=== PATIENT | male | born 1955 | race Caucasian/White ===

== ENCOUNTER 2018-04-09 15:01 | Outpatient (CLI) | payer OTHER ==
[~2018-04-09 15:01] MED LIST: ALBU8.5H5 INH; ASPI-515 PO; IRBE1TAB37 PO; METO50TA4 PO; MONT10TA9 PO; SIMV40TA3 PO
[2018-04-09 15:36] LABS: BASOPHILS # (AUTO) 0.04 x10^3/uL (0-0.1); BASOPHILS % (AUTO) 0 % (0-1); EOSINOPHILS # (AUTO) 0.49 x10^3/uL (0-0.4); EOSINOPHILS % (AUTO) 6 % (1-7); LYMPHOCYTES # (AUTO) 1.88 x10^3/uL (1-3.4); LYMPHOCYTES % (AUTO) 22 % (22-44); MD NO; MEAN CORPUSCULAR HEMOGLOBIN 32.5 pg (27.5-34.5); MEAN CORPUSCULAR HGB CONC 33.7 g/dL (33.2-36.2); MEAN CORPUSCULAR VOLUME 96.3 fL (81-97); MEAN PLATELET VOLUME 8.7 fL (7.4-10.4); MONOCYTES # (AUTO) 0.67 x10^3/uL (0.2-0.8); MONOCYTES % (AUTO) 8 % (2-9); NEUTROPHILS # (AUTO) 5.58 x10^3/uL (1.8-6.8); NEUTROPHILS % (AUTO) 65 % (42-75); PLATELET COUNT 211 x10^3/uL (130-400); RED BLOOD COUNT 4.71 x10^6/uL (4.38-5.82); RED CELL DISTRIBUTION WIDTH 13.1 % (9.4-14.8)
[2018-04-09] MEDS ORDERED: SIMV40TA3 PO (15:38)
[2018-04-09] MEDS ORDERED: ZOLP10TA PO (15:38)
[2018-04-09] MEDS ORDERED: IRBE1TAB61 PO (15:38)
[2018-04-09] MEDS ORDERED: ASPI-496 PO (15:39)
[2018-04-09] MEDS ORDERED: METO-93 PO (15:40)
[2018-04-09] MEDS ORDERED: NIAC500T9 PO (15:41)
[2018-04-09] MEDS ORDERED: ESCI5TAB PO (15:42)
[2018-04-09] MEDS ORDERED: FISH OIL PO (15:43)
[2018-04-09 15:49] LABS: ALANINE AMINOTRANSFERASE 37 U/L (12-78); ALBUMIN 3.6 g/dL (3.4-5.0); ANION GAP 9 mmol/L (5-15); CALCIUM 8.8 mg/dL (8.5-10.1); CHLORIDE 107 mmol/L (98-107); CREATININE 0.91 mg/dL (0.7-1.3)
[2018-04-09 15:51] LABS: ALKALINE PHOSPHATASE 97 U/L (45-117); BILIRUBIN,TOTAL 0.7 mg/dL (0.2-1.0); TOTAL PROTEIN 7.5 g/dL (6.4-8.2)
== END 2018-04-09 23:59 | disposition home or self-care (01) ==
LOC: STAR 15:01
PROVIDERS: ATTEND Internal Medicine Cardiovascular Disease
DX: Z01.818 Encounter for other preprocedural examination (principal); I25.10 Atherosclerotic heart disease of native coronary artery without angina pectoris; R07.89 Other chest pain
CPT/HCPCS: 36415; 80053; 85025

== ENCOUNTER 2018-04-15 10:10 | Inpatient (IN) | payer OTHER ==
[~2018-04-15] VITALS: Ht 188 cm; Wt 101.9 kg
[~2018-04-15 10:10] MED LIST changes: +ASPI-496 PO; +ESCI5TAB PO; +FISH OIL PO; +IRBE1TAB61 PO; +METO-93 PO; +NIAC500T9 PO; +ZOLP10TA PO
[2018-04-15 10:55] VITALS: BP 137/99
[2018-04-15] MEDS ORDERED: SODIUM CHLORIDE 0.9% 1,000 ML IV ONE (11:00)
[2018-04-15] MEDS ORDERED: BIVALIRUDIN 250 MG ONE (11:30)
[2018-04-15] MEDS ORDERED: MIDAZOLAM 1 MG/ML, 5ML ONE (11:30)
[2018-04-15] MEDS ORDERED: HEPARIN 1,000 UNITS/ML, 10ML ONE (11:30)
[2018-04-15] MEDS ORDERED: FENTANYL PF 100 MCG/2ML ONE (11:30)
[2018-04-15] MEDS ORDERED: LIDOCAINE 2%, 20ML ONE (11:31)
[2018-04-15] MEDS ORDERED: NITROGLYCERIN 5 MG/ML, 10ML ONE (12:20)
[2018-04-15] MEDS ORDERED: PRASUGREL 10 MG TABLET ONE (12:29)
[2018-04-15] MEDS ORDERED: BIVALIRUDIN 250 MG in SODIUM CHLORIDE 0.9% 50 ML IV SCH (12:39)
[2018-04-15] MEDS ORDERED: SODIUM CHLORIDE 0.9% 1,000 ML IV SCH (12:39)
[2018-04-15] MEDS ORDERED: ZOLPIDEM 10MG TABLET PO PRN (13:00)
[2018-04-15] MEDS ORDERED: ACETAMINOPHEN 325 MG TABLET PO PRN (13:00)
[2018-04-15 14:48] VITALS: BP 164/84
[2018-04-15] MEDS ORDERED: ALBU6.7H INH (16:29)
[2018-04-15] MEDS ORDERED: ALBUTEROL SULFATE 2.5 MG/3 ML ONE (16:53)
[2018-04-15] MEDS: ALBUTEROL SULFATE 2.5 MG/3 ML NPPB PRN (17:00)
[2018-04-15] MEDS ORDERED: DIPHENHYDRAMINE 25 MG CAPSULE PO ONE (18:00)
[2018-04-15 19:25] VITALS: BP 161/84
[2018-04-15] MEDS ORDERED: CITALOPRAM 10 MG TABLET PO SCH (21:00)
[2018-04-15] MEDS ORDERED: SIMVASTATIN 40 MG TABLET PO SCH (21:00)
[2018-04-16 02:36] VITALS: BP 130/61
[2018-04-16 05:04] LABS: ANION GAP 7 mmol/L (5-15); CALCIUM 8.5 mg/dL (8.5-10.1); CHLORIDE 107 mmol/L (98-107)
[2018-04-16 07:13] VITALS: BP 98/60
[2018-04-16] MEDS ORDERED: ASPIRIN 81 MG TABLET EC PO SCH (09:00)
[2018-04-16] MEDS ORDERED: METOPROLOL SUCCINATE 50 MG TAB.ER.24H PO SCH (09:00)
[2018-04-16] MEDS ORDERED: HYDROCHLOROTHIAZIDE 12.5 MG CAPSULE PO SCH (09:00)
[2018-04-16] MEDS ORDERED: OMEGA-3/FISH OIL CAPSULE PO SCH (09:00)
[2018-04-16] MEDS ORDERED: PRASUGREL 10 MG TABLET PO SCH (09:00)
[2018-04-16] MEDS ORDERED: NIACIN 500 MG TABLET.ER PO SCH (09:00)
[2018-04-16] MEDS ORDERED: TEMPLATE NON-FORMULARY MED. (Aspirin** (Aspir 81**) 81 MG) PO SCH (09:00)
[2018-04-16] MEDS ORDERED: IRBESARTAN 150 MG TABLET PO SCH (09:00)
[2018-04-16] MEDS: ALBUTEROL SULFATE 2.5 MG/3 ML NPPB PRN (10:03)
[2018-04-16 10:47] VITALS: BP 124/71
[2018-04-16] MEDS ORDERED: METO-93 PO (11:24)
[2018-04-16] MEDS ORDERED: SIMV40TA3 PO (11:24)
[2018-04-16] MEDS ORDERED: PRAS10TA4 PO (11:24)
[2018-04-16] MEDS ORDERED: ZOLP10TA PO (11:24)
== END 2018-04-16 13:00 | disposition home or self-care (01) | DRG 247 ==
LOC: CACL 10:10 → ORIP 12:39 → 5SO 12:59 → DCLOUNGE 04-16 12:51
PROVIDERS: ADMIT Internal Medicine Cardiovascular Disease; ATTEND Internal Medicine Cardiovascular Disease
PROC: 027034Z Dilation of Coronary Artery, One Artery with Drug-eluting Intraluminal Device, Percutaneous Approach (ICD-10-PCS; principal; 2018-04-15)
PROC: 02703DZ Dilation of Coronary Artery, One Artery with Intraluminal Device, Percutaneous Approach (ICD-10-PCS; 2018-04-15)
PROC: 4A023N7 Measurement of Cardiac Sampling and Pressure, Left Heart, Percutaneous Approach (ICD-10-PCS; 2018-04-15)
PROC: B2151ZZ Fluoroscopy of Left Heart using Low Osmolar Contrast (ICD-10-PCS; 2018-04-15)
PROC: B2111ZZ Fluoroscopy of Multiple Coronary Arteries using Low Osmolar Contrast (ICD-10-PCS; 2018-04-15)
PROC: B2181ZZ Fluoroscopy of Left Internal Mammary Bypass Graft using Low Osmolar Contrast (ICD-10-PCS; 2018-04-15)
PROC: B2171ZZ Fluoroscopy of Right Internal Mammary Bypass Graft using Low Osmolar Contrast (ICD-10-PCS; 2018-04-15)
PROC: B21F1ZZ Fluoroscopy of Other Bypass Graft using Low Osmolar Contrast (ICD-10-PCS; 2018-04-15)
DX: I25.710 Atherosclerosis of autologous vein coronary artery bypass graft(s) with unstable angina pectoris (principal); I10 Essential (primary) hypertension; E78.5 Hyperlipidemia, unspecified; Z88.6 Allergy status to analgesic agent; Z88.8 Allergy status to other drugs, medicaments and biological substances; E78.00 Pure hypercholesterolemia, unspecified; R55 Syncope and collapse
CPT/HCPCS: 36415; 93459; C9600; J7613; 80048; 85014; 85018; 93005; 94640; 99156; 99157; C1760; C1769; C1894; G0378; J0583; J1644; J2250; J3010; J3490; C1725; C1874; C1887; Q0163; Q9967

== ENCOUNTER 2018-08-27 14:13 | Observation (INO) | payer OTHER ==
[~2018-08-27] VITALS: Ht 188 cm; Wt 96.8 kg
[~2018-08-27 14:13] MED LIST changes: +ALBU6.7H INH; +PRAS10TA4 PO
[2018-08-27 14:45] LABS: BASOPHILS # (AUTO) 0.02 x10^3/uL (0-0.1); BASOPHILS % (AUTO) 0 % (0-1); EOSINOPHILS # (AUTO) 0.47 x10^3/uL (0-0.4); EOSINOPHILS % (AUTO) 7 % (1-7); LYMPHOCYTES # (AUTO) 1.55 x10^3/uL (1-3.4); LYMPHOCYTES % (AUTO) 23 % (22-44); MD NO; MEAN CORPUSCULAR HEMOGLOBIN 33.6 pg (27.5-34.5); MEAN CORPUSCULAR HGB CONC 33.9 g/dL (33.2-36.2); MEAN CORPUSCULAR VOLUME 99.3 fL (81-97); MEAN PLATELET VOLUME 8.5 fL (7.4-10.4); MONOCYTES # (AUTO) 0.64 x10^3/uL (0.2-0.8); MONOCYTES % (AUTO) 10 % (2-9); NEUTROPHILS # (AUTO) 3.98 x10^3/uL (1.8-6.8); NEUTROPHILS % (AUTO) 60 % (42-75); PLATELET COUNT 176 x10^3/uL (130-400); RED BLOOD COUNT 4.49 x10^6/uL (4.38-5.82); RED CELL DISTRIBUTION WIDTH 13.4 % (9.4-14.8)
[2018-08-27 14:55] LABS: ALBUMIN 3.6 g/dL (3.4-5.0); ANION GAP 7 mmol/L (5-15); CALCIUM 8.6 mg/dL (8.5-10.1); CHLORIDE 109 mmol/L (98-107)
[2018-08-27] MEDS ORDERED: METF850T10 PO (14:55)
[2018-08-27 14:58] LABS: ALANINE AMINOTRANSFERASE 28 U/L (12-78); ALKALINE PHOSPHATASE 105 U/L (45-117); BILIRUBIN,TOTAL 0.9 mg/dL (0.2-1.0); CREATININE 1.08 mg/dL (0.7-1.3); TOTAL PROTEIN 7.3 g/dL (6.4-8.2)
--- NOTE | 2018-08-27 15:02 | NUR ---
PT PRESENTS WITH INCREASED FATIGUE THAT HAS BEEN ONGOING FOR 1 MONTH. PT REPORTS RECENT CARDIAC STENT PLACEMENT. NO C/O PAIN. PT DENIES ANY NEEDS AT THIS TIME. VSS. PT ON [employer]. AT BEDSIDE.
[2018-08-27 15:16] LABS: TROPONIN I < 0.015 ng/mL (0.000-0.045)
--- NOTE | 2018-08-27 15:41 | NUR ---
IV STARTED FOR CT. VSS. PT LEAVING ROOM NOW FOR CT.
--- NOTE | 2018-08-27 15:50 | NUR ---
Pt to CT via yvan
[2018-08-27] MEDS ORDERED: OMNIPAQUE 350 MG/ML, 100ML BOTTLE ONE (16:01)
[2018-08-27] MEDS ORDERED: ONDANSETRON 2MG/ML, 2ML IVPush PRN (16:30)
[2018-08-27] MEDS ORDERED: ENOXAPARIN 40 MG/0.4 ML SQ SCH (16:30)
--- NOTE | 2018-08-27 16:53 | NUR ---
Pia wyman in [facility] - 08/27/18 at 1713 by MARAL Patient is resting comfortably in bed. Vital Signs within normal limits.
--- NOTE | 2018-08-27 16:53 | NUR ---
Patient is resting comfortably in bed. Vital Signs within normal limits.
[2018-08-27] MEDS ORDERED: ZOLPIDEM 5MG TABLET PO PRN (17:00)
[2018-08-27 17:03] LABS: TROPONIN I < 0.015 ng/mL (0.000-0.045)
[2018-08-27 17:19] LABS: HEMOGLOBIN A1C 5.8 % (4.2-6.3)
--- NOTE | 2018-08-27 17:34 | NUR ---
Triage report given to staff nurse at [facility] (Lanie). The nurse has been informed of HPI, Home Meds, and Allergies for this patient. Nurse informed of multiple episodes of syncope.
[2018-08-27 18:13] VITALS: BP 176/85
[2018-08-27 18:22] VITALS: BP 172/93
[2018-08-27] MEDS ORDERED: hydrALAzine 20 MG/ML, 1ML ONE (18:45)
[2018-08-27] MEDS ORDERED: hydrALAzine 20 MG/ML, 1ML IV ONE (19:00)
[2018-08-27 19:12] VITALS: BP 178/86
[2018-08-27] MEDS ORDERED: hydrALAzine 20 MG/ML, 1ML IV PRN (20:00)
[2018-08-27 20:20] VITALS: BP 168/82
[2018-08-27 20:21] VITALS: BP 162/82
[2018-08-27] MEDS: metFORMIN 500 MG TABLET PO SCH (20:31)
[2018-08-27] MEDS ORDERED: GLIMEPIRIDE 1 MG TABLET PO SCH (21:00)
[2018-08-27] MEDS ORDERED: ATORVASTATIN 80 MG TABLET PO SCH (21:00)
[2018-08-27] MEDS ORDERED: ESCITALOPRAM 10MG TABLET PO SCH (21:00)
[2018-08-27] MEDS ORDERED: ALBUTEROL SULFATE 2.5 MG/3 ML ONE (21:06)
[2018-08-27] MEDS ORDERED: ALBUTEROL SULFATE 2.5 MG/3 ML NPPB PRN (21:30)
[2018-08-27 21:46] VITALS: BP 142/71
[2018-08-27 22:38] LABS: TROPONIN I < 0.015 ng/mL (0.000-0.045)
[2018-08-28] MEDS ORDERED: ACETAMINOPHEN 325 MG TABLET ONE (01:08)
[2018-08-28 01:09] VITALS: BP 138/75
[2018-08-28] MEDS ORDERED: ACETAMINOPHEN 325 MG TABLET PO PRN (01:30)
[2018-08-28 06:43] VITALS: BP 142/78
[2018-08-28 06:44] VITALS: BP 118/74
[2018-08-28 06:45] VITALS: BP 123/76
[2018-08-28 06:55] VITALS: BP 142/72
[2018-08-28] MEDS ORDERED: [UNRECOGNIZED DRUG - OTHER] PO SCH (09:00)
[2018-08-28] MEDS: metFORMIN 500 MG TABLET PO SCH (09:00)
[2018-08-28] MEDS ORDERED: IRBESARTAN 150 MG TABLET PO SCH (09:00)
[2018-08-28] MEDS ORDERED: ASPIRIN 81 MG TABLET EC PO SCH (09:00)
[2018-08-28] MEDS ORDERED: METOPROLOL SUCCINATE 50 MG TAB.ER.24H PO SCH (09:00)
[2018-08-28] MEDS ORDERED: HYDROCHLOROTHIAZIDE 12.5 MG CAPSULE PO SCH (09:00)
[2018-08-28] MEDS ORDERED: IRBESARTAN PO SCH (09:00)
[2018-08-28] MEDS ORDERED: HYDROCHLOROTHIAZIDE PO SCH (09:00)
[2018-08-28] MEDS ORDERED: PRASUGREL 10 MG TABLET PO SCH (09:00)
[2018-08-28] MEDS ORDERED: NIACIN 500 MG TABLET.ER PO SCH (09:00)
[2018-08-28] MEDS ORDERED: OMEGA-3/FISH OIL CAPSULE PO SCH (09:00)
[2018-08-28] MEDS ORDERED: ATOR-2 PO (12:23)
[2018-08-28 12:48] VITALS: BP 136/76
== END 2018-08-28 14:36 | disposition home or self-care (01) ==
LOC: ED 16:02 → EDIP 16:23 → 5SO 17:47 → DCLOUNGE 08-28 14:26
PROVIDERS: ADMIT Internal Medicine; ATTEND Internal Medicine
DX: R53.83 Other fatigue (principal); R06.00 Dyspnea, unspecified; R53.1 Weakness; R55 Syncope and collapse; I11.0 Hypertensive heart disease with heart failure; I50.43 Acute on chronic combined systolic (congestive) and diastolic (congestive) heart failure; J84.10 Pulmonary fibrosis, unspecified; E11.9 Type 2 diabetes mellitus without complications; E78.5 Hyperlipidemia, unspecified; F32.9 Major depressive disorder, single episode, unspecified; F41.9 Anxiety disorder, unspecified; I25.10 Atherosclerotic heart disease of native coronary artery without angina pectoris; J45.909 Unspecified asthma, uncomplicated; Z95.5 Presence of coronary angioplasty implant and graft; Z88.5 Allergy status to narcotic agent; Z79.82 Long term (current) use of aspirin; Z79.84 Long term (current) use of oral hypoglycemic drugs; Z79.899 Other long term (current) drug therapy; Z95.1 Presence of aortocoronary bypass graft
CPT/HCPCS: 36415; 71046; 71275; 80053; 82607; 83036; 83880; 84443; 84484; 85025; 93005; 93306; 96372; 96374; 96376; 99284; G0378; J0360; J1650; Q9967

== ENCOUNTER → 2020-08-30 | Outpatient (CLI) | payer OTHER ==
[~2020-08-30] MED LIST changes: -ALBU6.7H INH; +ALBU6.7H8 INH; -ASPI-515 PO; +ASPI-963 PO; +ATOR-2 PO; -ESCI5TAB PO; +ESCI5TAB8 PO; +METF850T10 PO; +MONT10TA17 PO; -MONT10TA9 PO; +SIMV40TA20 PO; -SIMV40TA3 PO
== END | disposition home or self-care (01) ==
LOC: RAD 09:11
PROVIDERS: ATTEND Nurse Practitioner Family
DX: R05 Cough (principal); J02.9 Acute pharyngitis, unspecified
CPT/HCPCS: 71046

== ENCOUNTER → 2020-09-06 | Outpatient (CLI) | payer OTHER ==
[2020-09-06 09:53] LABS: BASOPHILS % (AUTO) 1 % (0-1); EOSINOPHILS % (AUTO) 6 % (1-7); LYMPHOCYTES % (AUTO) 21 % (22-44); MEAN CORPUSCULAR HEMOGLOBIN 34.3 pg (27.5-34.5); MEAN CORPUSCULAR HGB CONC 34.1 g/dL (33.2-36.2); MEAN PLATELET VOLUME 8.7 fL (7.4-10.4); MONOCYTES % (AUTO) 9 % (2-9); NEUTROPHILS % (AUTO) 65 % (42-75); PLATELET COUNT 159 x10^3/uL (130-400); RED BLOOD COUNT 4.59 x10^6/uL (4.38-5.82)
[2020-09-06 10:03] LABS: ANION GAP 5 mmol/L (5-15); CALCIUM 8.2 mg/dL (8.5-10.1); CHLORIDE 106 mmol/L (98-107)
[2020-09-06 10:12] LABS: ALANINE AMINOTRANSFERASE 35 U/L (12-78); ALKALINE PHOSPHATASE 111 U/L (45-117); BILIRUBIN,TOTAL 0.7 mg/dL (0.2-1.0); CHOL/HDL RATIO 3.6; CHOLESTEROL, TOTAL 122 mg/dL (140-239); HDL CHOL % 28 % (26-37); HDL CHOLESTEROL (DIRECT) 34 mg/dL (40-60); LDL CHOLESTEROL,CALCULATED 66 mg/dL (54-169); LDL/HDL RATIO 1.9 (0.5-3.0); T4 (THYROXINE) 7.3 mcg/dL (4.5-12.1); TOTAL PROTEIN 6.6 g/dL (6.4-8.2); TRIGLYCERIDES 111 mg/dL (50-200); VLDL CHOLESTEROL 22 mg/dL (0-25)
== END | disposition home or self-care (01) ==
LOC: LAB 09:29
PROVIDERS: ATTEND Internal Medicine Cardiovascular Disease
DX: I10 Essential (primary) hypertension (principal); I25.10 Atherosclerotic heart disease of native coronary artery without angina pectoris; R55 Syncope and collapse; R06.00 Dyspnea, unspecified
CPT/HCPCS: 36415; 80053; 80061; 83036; 84436; 84443; 84481; 85025

== ENCOUNTER 2020-10-17 11:30 | Day surgery (SDC) | payer OTHER ==
[~2020-10-17] VITALS: Ht 188 cm; Wt 90.0 kg
[2020-10-17] MEDS ORDERED: SIMV40TA20 PO (12:07)
[2020-10-17] MEDS ORDERED: GUAI-103 PO (12:07)
[2020-10-17] MEDS ORDERED: NIAC500T85 PO (12:07)
[2020-10-17] MEDS ORDERED: LOSA1TAB19 PO (12:07)
[2020-10-17] MEDS ORDERED: ALBU18HF INH (12:07)
[2020-10-17] MEDS ORDERED: GLIM1TAB7 PO (12:07)
[2020-10-17] MEDS ORDERED: ZOLP10TA PO (12:07)
[2020-10-17] MEDS ORDERED: METO25TA91 PO (12:07)
[2020-10-17] MEDS ORDERED: FLUT1BLS INH (12:07)
[2020-10-17 12:22] LABS: BASOPHILS % (AUTO) 1 % (0-1); EOSINOPHILS % (AUTO) 2 % (1-7); LYMPHOCYTES % (AUTO) 16 % (22-44); MEAN CORPUSCULAR HEMOGLOBIN 34.2 pg (27.5-34.5); MEAN CORPUSCULAR HGB CONC 34.2 g/dL (33.2-36.2); MEAN PLATELET VOLUME 8.9 fL (7.4-10.4); MONOCYTES % (AUTO) 8 % (2-9); NEUTROPHILS % (AUTO) 74 % (42-75); PLATELET COUNT 179 x10^3/uL (130-400); RED BLOOD COUNT 4.81 x10^6/uL (4.38-5.82); RED CELL DISTRIBUTION WIDTH 12.9 % (9.4-14.8)
[2020-10-17 12:29] LABS: ALANINE AMINOTRANSFERASE 31 U/L (12-78); ALBUMIN 3.7 g/dL (3.4-5.0); ANION GAP 5 mmol/L (5-15); CALCIUM 8.6 mg/dL (8.5-10.1); CHLORIDE 105 mmol/L (98-107); CREATININE 1.05 mg/dL (0.7-1.3)
[2020-10-17 12:31] LABS: ALKALINE PHOSPHATASE 149 U/L (45-117); TOTAL PROTEIN 7.9 g/dL (6.4-8.2)
[2020-10-17] MEDS ORDERED: BIVALIRUDIN 250 MG ONE (13:47)
[2020-10-17] MEDS ORDERED: FENTANYL PF 100 MCG/2ML ONE (13:47)
[2020-10-17] MEDS ORDERED: VERAPAMIL 2.5 MG/ML, 2ML ONE (13:47)
[2020-10-17] MEDS ORDERED: LIDOCAINE 2%, 20ML ONE (13:47)
[2020-10-17] MEDS ORDERED: MIDAZOLAM 1 MG/ML, 2ML ONE (13:48)
== END 2020-10-17 17:07 | disposition home or self-care (01) ==
LOC: CACL 11:30
PROVIDERS: ATTEND Internal Medicine Cardiovascular Disease
DX: R06.09 Other forms of dyspnea (principal); I25.700 Atherosclerosis of coronary artery bypass graft(s), unspecified, with unstable angina pectoris; I25.110 Atherosclerotic heart disease of native coronary artery with unstable angina pectoris; I25.82 Chronic total occlusion of coronary artery; I37.1 Nonrheumatic pulmonary valve insufficiency; J84.9 Interstitial pulmonary disease, unspecified; I10 Essential (primary) hypertension; I27.20 Pulmonary hypertension, unspecified; E78.00 Pure hypercholesterolemia, unspecified; E11.9 Type 2 diabetes mellitus without complications; Z79.82 Long term (current) use of aspirin; Z79.84 Long term (current) use of oral hypoglycemic drugs; Z79.899 Other long term (current) drug therapy; Z88.5 Allergy status to narcotic agent
CPT/HCPCS: 36415; 80053; 82803; 85025; 93306; 93461; 99156; 99157; C1760; C1769; C1894; J2250; J3010; Q9967; J0583

== ENCOUNTER → 2020-11-28 | Outpatient (CLI) | payer OTHER ==
[~2020-11-28] MED LIST changes: +ALBU18HF INH; +FLUT1BLS INH; +GLIM1TAB7 PO; +GUAI-103 PO; +LOSA1TAB19 PO; +METO25TA91 PO; +NIAC500T85 PO
== END | disposition home or self-care (01) ==
LOC: CFH 08:52
PROVIDERS: ATTEND Internal Medicine Cardiovascular Disease
DX: J92.9 Pleural plaque without asbestos (principal); J84.10 Pulmonary fibrosis, unspecified; R06.02 Shortness of breath; J47.9 Bronchiectasis, uncomplicated; K44.9 Diaphragmatic hernia without obstruction or gangrene; J43.9 Emphysema, unspecified; K80.20 Calculus of gallbladder without cholecystitis without obstruction
CPT/HCPCS: 71250